=== PATIENT | male | born 1980 ===

== ENCOUNTER 2017-02-12 16:02 | Emergency (ER) | payer BC ==
[2017-02-12] MEDS ORDERED: Tobramycin Sulfate 0.3% Ophth Susp 5 ml Bottle ONE ×2 (16:28→16:31)
[2017-02-12] MEDS ORDERED: Cephalexin 500 MG CAP ONE (16:31)
== END 2017-02-12 16:40 | disposition home or self-care (01) ==
LOC: MADERS 16:02
DX: H00.016 Hordeolum externum left eye, unspecified eyelid (principal); F17.220 Nicotine dependence, chewing tobacco, uncomplicated
CPT/HCPCS: 99283